=== PATIENT | male | born 1950 | race Caucasian/White ===

== ENCOUNTER 2025-03-26 06:46 | Day surgery (SDC) | payer MEDICARE, OTHER ==
[~2025-03-26] VITALS: Ht 172.7 cm; Wt 45.5 kg
[2025-03-26] MEDS ORDERED: BENZOCAINE 20% 50 MCG/SPRAY 57 GM TP ONE (06:47)
[2025-03-26] MEDS ORDERED: LIDOCAINE 4% 50 ML SOLUTION TP ONE (06:47)
[2025-03-26] MEDS ORDERED: ALBUTEROL SULFATE 2.5 MG/0.5 ML NEB SOLUTION NEB ONE (06:47)
[2025-03-26] MEDS ORDERED: LIDOCAINE 2% 11 ML JELLY TP ONE (06:47)
[2025-03-26] MEDS ORDERED: SODIUM CHLORIDE 0.9% 1,000 ML ONE (06:58)
[2025-03-26] MEDS ORDERED: BUDE10.7 IH (07:07)
[2025-03-26] MEDS ORDERED: MONT-40 PO (07:07)
[2025-03-26] MEDS: SODIUM CHLORIDE 0.9% 1,000 ML IV ONE (07:37)
[2025-03-26] MEDS ORDERED: MIDAZOLAM HCL 2 MG/2 ML VIAL ONE (07:50)
[2025-03-26] MEDS ORDERED: FentaNYL CITRATE PF 100 MCG/2 ML VIAL ONE (07:50)
[2025-03-26 09:55] VITALS: PULSE 86; RESP 16; O2SAT 100
== END 2025-03-26 13:40 | disposition home or self-care (01) ==
LOC: SURGERY 06:46
PROVIDERS: ATTEND Internal Medicine Critical Care Medicine
DX: R05.3 Chronic cough (principal); R06.1 Stridor; J43.9 Emphysema, unspecified; Z79.899 Other long term (current) drug therapy; Z98.890 Other specified postprocedural states
CPT/HCPCS: 31623; 87206; 87101; 87220; 87070; 88108; 87186; 31624; 94640; 71045; 87015; J3010; J2250; J2919; J7030; J7613; Z7610